=== PATIENT | female | born 1985 | race Caucasian/White ===

== ENCOUNTER 2017-08-11 01:15 | Emergency (ER) | payer SELFPAY ==
[~2017-08-11] VITALS: Ht 162.6 cm; Wt 70.6 kg
[~2017-08-11 01:15] MED LIST: MOTRIN800 MG PO; PERCOCET 5/31 TABLET PO
[2017-08-11] MEDS ORDERED: NORCO 5/3251 TABLET PO (02:42)
[2017-08-11] MEDS ORDERED: AMOXICILLIN500 MG PO (02:42)
[2017-08-11 02:53] VITALS: BP 117/82
== END 2017-08-11 02:54 | disposition home or self-care (01) ==
LOC: EME 01:15
DX: S02.5XXA Fracture of tooth (traumatic), initial encounter for closed fracture (principal); Y93.89 Activity, other specified
CPT/HCPCS: 99281; 99283

== ENCOUNTER 2017-08-13 06:13 | Emergency (ER) | payer SELFPAY ==
[~2017-08-13] VITALS: Ht 162.6 cm; Wt 68.7 kg
[~2017-08-13 06:13] MED LIST changes: +AMOXICILLIN500 MG PO; +NORCO 5/3251 TABLET PO
[2017-08-13] MEDS ORDERED: AUGMENTIN875 MG PO (07:22)
[2017-08-13 07:47] VITALS: BP 157/84
== END 2017-08-13 07:48 | disposition home or self-care (01) ==
LOC: EME 06:13
DX: R07.0 Pain in throat (principal); Z98.890 Other specified postprocedural states; F17.200 Nicotine dependence, unspecified, uncomplicated
CPT/HCPCS: 70360; 99281; 99284